=== PATIENT | male | born 1965 | race Caucasian/White ===

== ENCOUNTER 2023-06-01 15:49 | Outpatient (CLI) | payer OTHER, SELFPAY ==
[2023-06-01 17:32] LABS: HIV 1/2 Ab P24 Ag Result Negative (Negative)
[2023-06-01 18:01] LABS: Hepatitis B Surface Antigen Negative (Negative)
[2023-06-01 18:12] LABS: Hepatitis B Surface Anti Res Negative
[2023-06-01 18:30] LABS: Hepatitis C Virus Antibody Negative (Negative)
[2023-06-04 03:21] LABS: Hepatitis B Core Ab Total Nonreactive (Nonreactive)
[2023-06-05 12:06] LABS: Hepatitis C RNA, Quant PCR <15 IU/mL
[2023-06-07 08:50] LABS: Hepatitis B DNA PCR Not Detected
== END 2023-06-01 15:50 | disposition home or self-care (01) ==
PROVIDERS: PCP Family Medicine
DX: Z11.59 Encounter for screening for other viral diseases (principal); Z20.5 Contact with and (suspected) exposure to viral hepatitis
CPT/HCPCS: 36415; 86703; 86704; 86706; 86803; 87340; 87517; 87522; G0432